=== PATIENT | male | born 1985 | race Caucasian/White ===

== ENCOUNTER 2019-12-16 08:36 | Inpatient (IN) | payer OTHER ==
[~2019-12-16] VITALS: Ht 175.3 cm; Wt 82.7 kg
--- NOTE | 2019-12-16 08:40 | NUR ---
Pt states he is not taking any medications, even the ones he was prescribed.
[2019-12-16] MEDS ORDERED: ONDANSETRON 4 MG/2 ML VIAL ONE (08:51)
[2019-12-16] MEDS ORDERED: MORPHINE SULFATE 4 MG/1 ML DISP.SYRIN ONE (08:51)
[2019-12-16] MEDS ORDERED: MORPHINE SULFATE 2 MG/1 ML DISP.SYRIN ONE (08:52)
[2019-12-16] MEDS ORDERED: FAMOTIDINE. 20 MG/2 ML VIAL IV ONE ×2 (08:52→09:00)
[2019-12-16] MEDS ORDERED: ONDANSETRON 4 MG/2 ML VIAL IV ONE (09:00)
[2019-12-16] MEDS ORDERED: MORPHINE SULFATE 2 MG/1 ML DISP.SYRIN IV ONE (09:00)
[2019-12-16] MEDS ORDERED: IV NORMAL SALINE 1000 ML BAG IV ONE ×2 (09:00→10:15)
[2019-12-16] MEDS ORDERED: MAG HYDROX/AL HYDROX/SIMETH 30 ML LIQUID UDC PO ONE (09:15)
[2019-12-16] MEDS ORDERED: LIDOCAINE VISCUS 2% 15 ML UDC MM ONE (09:15)
[2019-12-16] MEDS ORDERED: LIDOCAINE VISCUS 2% 15 ML UDC ONE (09:20)
[2019-12-16] MEDS ORDERED: MAG HYDROX/AL HYDROX/SIMETH 30 ML LIQUID UDC ONE (09:20)
[2019-12-16 09:33] LABS: BASOPHILS % (AUTO) 0.4 % (0.0-2.0); EOSINOPHILS # (AUTO) 0.1 K/uL (0.0-0.7); EOSINOPHILS % (AUTO) 0.8 % (0.0-7.0); HEMATOCRIT 46.2 % (36.7-47.1); HEMOGLOBIN 16.1 g/dL (12.5-16.3); LYMPHOCYTES # (AUTO) 1.6 K/uL (20.0-40.0); LYMPHOCYTES % (AUTO) 16.1 % (20.5-51.5); MEAN CORPUSCULAR HGB CONC 35 g/dL (32.5-36.3); MEAN CORPUSCULAR VOLUME 88.8 fL (73.0-96.2); MONOCYTES # (AUTO) 0.7 K/uL (2.0-10.0); MONOCYTES % (AUTO) 7.1 % (0.0-11.0); NEUTROPHILS # (AUTO) 7.3 K/uL (1.8-8.9); NEUTROPHILS % (AUTO) 75.6 % (38.5-71.5); PLATELET COUNT (AUTO) 205 K/uL (152-348); WHITE BLOOD COUNT (AUTO) 9.7 K/uL (3.6-10.2)
--- NOTE | 2019-12-16 09:38 | NUR ---
Patient is resting comfortably in bed with eyes closed, pending results & disposition
[2019-12-16 09:41] LABS: CREATININE 0.8 mg/dL (0.6-1.3); POTASSIUM 3.8 mmol/L (3.5-5.1)
[2019-12-16 09:47] LABS: BILIRUBIN,DIRECT 0.3 mg/dL (0.0-0.2); BILIRUBIN,TOTAL 1.5 mg/dL (0.2-1.0); TOTAL PROTEIN, SERUM 7.8 g/dL (6.4-8.2)
[2019-12-16] MEDS ORDERED: LORAZEPAM 2 MG/1 ML VIAL ONE (09:49)
[2019-12-16] MEDS ORDERED: LORAZEPAM 2 MG/1 ML VIAL IV ONE ×2 (10:00→16:45)
[2019-12-16] MEDS ORDERED: ACETAMINOPHEN 325 MG TABLET PO PRN (10:15)
[2019-12-16] MEDS: THIAMINE HCL INJ 100 MG in IV DEXTROSE 5% 50 ML IV SCH ×2 (10:15→10:52)
[2019-12-16] MEDS ORDERED: HYDROMORPHONE 1 MG/1 ML DISP.SYRIN IV ONE (10:15)
[2019-12-16] MEDS ORDERED: LORAZEPAM 2 MG/1 ML VIAL IV PRN ×2 (10:15→22:00)
[2019-12-16] MEDS ORDERED: HYDROMORPHONE 1 MG/1 ML DISP.SYRIN ONE (10:26)
[2019-12-16] MEDS: SUCRALFATE 1 G/10 ML LIQUID UDC PO SCH ×3 (10:54→19:57)
--- NOTE | 2019-12-16 10:58 | NUR ---
Patient is admitted to 3rd floor telemetry room 330 , under the care of JAYY Martinez. Belongings list completed.
[2019-12-16] MEDS ORDERED: SUCRALFATE 1 G/10 ML LIQUID UDC PO ONE (11:30)
[2019-12-16 12:00] VITALS: BP 121/71
--- NOTE | 2019-12-16 12:05 | NUR ---
RECEIVED PATIENT IN BED, PATIENT IS IN AND OUT OF DROWSINESS, AOX4. ABLE TO GET SOC INFORMATION. VS STABLE. PATIENT COMPLAINS OF ABDOMINAL PAIN. RT. AC INTACT AND FLUSHED. SAFETY AND FALL PREVENTION IN PLACE. BED IN LOW POSITION AND LOCKED. CALL LIGHT IN REACH. WILL CONTINUE TO MONITOR.
[2019-12-16] MEDS: IV NS 1000 ML 1,000 ML IV PRN ×2 (13:30→19:54)
[2019-12-16] MEDS: MORPHINE SULFATE 2 MG/1 ML DISP.SYRIN IV PRN ×2 (14:16→19:55)
[2019-12-16 16:50] VITALS: BP 140/79
--- NOTE | 2019-12-16 18:54 | NUR ---
PATIENT AOX4. PATIENT COMPLAINS OF ABDOMINAL PAIN. MEDICATION GIVEN ORDERED. PT. HAS HAND TREMORS MD AWARE. RT. AC INTACT AND FLUSHED. SAFETY AND FALL PREVENTION IN PLACE. BED IN LOW POSITION AND LOCKED. CALL LIGHT IN REACH. WILL REPOST TO ONCOMING NURSE.
[2019-12-16] MEDS: ONDANSETRON 4 MG/2 ML VIAL IV PRN (19:54)
[2019-12-16 20:31] VITALS: BP 124/75
--- NOTE | 2019-12-16 21:30 | NUR ---
JAYY DURAND notified of CIWA Score : 17, pt actively withdrawing from alcohol. Increasingly anxious and agitated. No meds on board for alcohol withdrawal, new one time order noted and carried out.
[2019-12-17 00:01] VITALS: BP 136/80
[2019-12-17] MEDS: IV NS 1000 ML 1,000 ML IV PRN ×3 (03:30→19:41)
[2019-12-17 04:00] VITALS: BP 134/74
[2019-12-17] MEDS: ONDANSETRON 4 MG/2 ML VIAL IV PRN (06:10)
[2019-12-17] MEDS: MORPHINE SULFATE 2 MG/1 ML DISP.SYRIN IV PRN ×4 (06:10→19:34)
[2019-12-17 06:35] LABS: BASOPHILS % (AUTO) 0.4 % (0.0-2.0); EOSINOPHILS # (AUTO) 0.1 K/uL (0.0-0.7); EOSINOPHILS % (AUTO) 0.8 % (0.0-7.0); HEMATOCRIT 41.5 % (36.7-47.1); HEMOGLOBIN 14.4 g/dL (12.5-16.3); LYMPHOCYTES # (AUTO) 1.4 K/uL (20.0-40.0); LYMPHOCYTES % (AUTO) 12.7 % (20.5-51.5); MEAN CORPUSCULAR HEMOGLOBIN 30.8 uug (23.8-33.4); MEAN CORPUSCULAR HGB CONC 35 g/dL (32.5-36.3); MEAN CORPUSCULAR VOLUME 89.1 fL (73.0-96.2); MONOCYTES # (AUTO) 0.8 K/uL (2.0-10.0); MONOCYTES % (AUTO) 7.2 % (0.0-11.0); NEUTROPHILS # (AUTO) 8.5 K/uL (1.8-8.9); NEUTROPHILS % (AUTO) 78.9 % (38.5-71.5); PLATELET COUNT (AUTO) 158 K/uL (152-348); RED BLOOD CELL COUNT(AUTO) 4.66 MIL/uL (4.06-5.63); WHITE BLOOD COUNT (AUTO) 10.8 K/uL (3.6-10.2)
[2019-12-17 06:51] LABS: CREATININE 0.7 mg/dL (0.6-1.3); MAGNESIUM 1.6 mg/dL (1.8-2.4); PHOSPHOROUS 2.5 mg/dL (2.5-4.9); POTASSIUM 3.5 mmol/L (3.5-5.1)
[2019-12-17] MEDS: SUCRALFATE 1 G/10 ML LIQUID UDC PO SCH ×4 (06:52→21:12)
[2019-12-17 07:02] LABS: THYROID STIMULATING HORMONE 1.317 mIU/mL (0.358-3.740)
--- NOTE | 2019-12-17 07:27 | NUR ---
SLEPT WELL THROUGH THE [facility], CIWA SCORING DONE EVRY 4 HOURS. PATIENT DID VERY WELL, NO EXCESSIVE SIGNS OF ALCOHOL WITHDRAWAL NOTED. ABDOMINAL PAIN EFFECTIVELY MANAGED WITH MORPHINE 1MG X 2 GIVEN, AND HOT PACKS. NEEDS ATTENDED. ASSISTED TO BATHROOM FOR SELF GROOMING, TOLERATED WELL. ENDORSED ACCORDINGLY.
--- NOTE | 2019-12-17 07:45 | NUR ---
RECEIVED PATIENT IN BED, AOX4. . PATIENT COMPLAINS OF ABDOMINAL PAIN. PATIENT WAS GIVEN A HOT PACK FOR PAIN PAIN MEDICATION NOT DUE. RT. AC INTACT AND FLUSHED. SAFETY AND FALL PREVENTION IN PLACE. BED IN LOW POSITION AND LOCKED. CALL LIGHT IN REACH. WILL CONTINUE TO MONITOR.
[2019-12-17] MEDS: PANTOPRAZOLE SODIUM 40 MG VIAL IV SCH (08:42)
[2019-12-17] MEDS: FOLIC ACID/VITAMIN B COMP W-C TABLET PO SCH (08:42)
[2019-12-17] MEDS ORDERED: MAGNESIUM OXIDE 400 MG TABLET PO ONE (09:00)
[2019-12-17] MEDS ORDERED: LORAZEPAM 2 MG/1 ML VIAL IV ONE (10:30)
[2019-12-17 11:46] VITALS: BP 140/86
[2019-12-17 13:05] LABS: *BILIRUBIN,URIN NEGATIVE (NEGATIVE); *BLOOD, URINE 1+ (NEGATIVE); *CLARITY,URINE CLEAR (CLEAR); *COLOR,URINE YELLOW (YELLOW); *KETONES,URINE 4+ (NEGATIVE); LEUKOCYTE ESTERASE ,URINE NEGATIVE (NEGATIVE); NITRITE, URINE NEGATIVE (NEGATIVE); UGLUCOSE NEGATIVE (NEGATIVE)
[2019-12-17 13:26] LABS: BACTERIA,URINE FEW /HPF (NONE SEEN); RBC,URINE 0-3 /HPF (0-3); SQUAMOUS EPITHELIAL CELL,UR FEW /HPF (NONE SEEN); WBC,URINE 0-3 /HPF (0-3)
[2019-12-17] MEDS: THIAMINE HCL INJ 100 MG in IV DEXTROSE 5% 50 ML IV SCH (14:53)
[2019-12-17 15:48] VITALS: BP 136/89
--- NOTE | 2019-12-17 17:43 | NUR ---
PATIENT IN BED, AOX4. . PATIENT COMPLAINS OF ABDOMINAL PAIN. PATIENT TREATED WITH HOT PACKS FOR PAIN AND PAIN MEDICATION ORDERED. RT. AC INTACT AND FLUSHED. SAFETY AND FALL PREVENTION IN PLACE. BED IN LOW POSITION AND LOCKED. CALL LIGHT IN REACH. WILL REPORT TO ONCOMING NURSE.
--- NOTE | 2019-12-17 20:18 | NUR ---
Patient received in bed. Alert and oriented x 3-4. Unable remember what hospital he is in or how he got here. Pain in the abdomen., hot pack given and morphine. Patient requesting information on the location of his car. Security informed, and located vehicle in [facility] parking lot. Patient requesting Ativan dose for this evening. MD contacted. Will continue to monitor.
[2019-12-17 20:27] VITALS: BP 141/82
[2019-12-17] MEDS ORDERED: LORAZEPAM 2 MG/1 ML VIAL IV PRN (21:15)
[2019-12-18] VITALS: BP 134/87
[2019-12-18] MEDS: MORPHINE SULFATE 2 MG/1 ML DISP.SYRIN IV PRN ×6 (02:19→22:11)
[2019-12-18] MEDS: IV NS 1000 ML 1,000 ML IV PRN ×3 (02:24→18:16)
[2019-12-18 04:00] VITALS: BP 147/90
--- NOTE | 2019-12-18 06:26 | NUR ---
X2 JELLO GIVEN TO PATIENT THIS AM. NAUSEA AND PAIN FELT IN ABDOMEN. MORPHINE GIVEN. WILL CONTINUE TO MONITOR.
[2019-12-18] MEDS: SUCRALFATE 1 G/10 ML LIQUID UDC PO SCH ×5 (06:30→20:35)
[2019-12-18 06:41] LABS: CREATININE 0.7 mg/dL (0.6-1.3); MAGNESIUM 1.5 mg/dL (1.8-2.4); PHOSPHOROUS 2.2 mg/dL (2.5-4.9); POTASSIUM 3.2 mmol/L (3.5-5.1)
[2019-12-18 06:43] LABS: BASOPHILS % (AUTO) 0.3 % (0.0-2.0); EOSINOPHILS # (AUTO) 0.2 K/uL (0.0-0.7); EOSINOPHILS % (AUTO) 3.3 % (0.0-7.0); HEMATOCRIT 42.9 % (36.7-47.1); HEMOGLOBIN 14.8 g/dL (12.5-16.3); LYMPHOCYTES # (AUTO) 0.7 K/uL (20.0-40.0); LYMPHOCYTES % (AUTO) 9.6 % (20.5-51.5); MEAN CORPUSCULAR HEMOGLOBIN 30.7 uug (23.8-33.4); MEAN CORPUSCULAR HGB CONC 35 g/dL (32.5-36.3); MEAN CORPUSCULAR VOLUME 88.7 fL (73.0-96.2); MONOCYTES # (AUTO) 0.3 K/uL (2.0-10.0); MONOCYTES % (AUTO) 4.4 % (0.0-11.0); NEUTROPHILS % (AUTO) 82.4 % (38.5-71.5); RED BLOOD CELL COUNT(AUTO) 4.83 MIL/uL (4.06-5.63)
[2019-12-18 07:04] LABS: PLATELET COUNT (AUTO) 101 K/uL (152-348); WHITE BLOOD COUNT (AUTO) 7.2 K/uL (3.6-10.2)
[2019-12-18 07:55] VITALS: BP 142/94
[2019-12-18] MEDS: PANTOPRAZOLE SODIUM 40 MG VIAL IV SCH (08:29)
[2019-12-18] MEDS: ONDANSETRON 4 MG/2 ML VIAL IV PRN (08:29)
[2019-12-18] MEDS: FOLIC ACID/VITAMIN B COMP W-C TABLET PO SCH (08:30)
[2019-12-18] MEDS ORDERED: LORAZEPAM 2 MG/1 ML VIAL IV PRN (10:45)
[2019-12-18] MEDS: MAGNESIUM SULFATE/D5W 100 ML IV SCH ×3 (11:16→13:05)
--- NOTE | 2019-12-18 11:35 | NUR ---
Patient medicated for pain ATC though out the shift, and according to him never happy at around noon patient threatening to leave AMA. Patient educated on possible danger to leave AMA, attending notified. patient medicated with ativan as ordered. Patient decided to stay. At 1800 patient requesting ativan Q4H or Q2H and dilaudid 2mg Q2H.would be better". Attending called and orders received.
[2019-12-18 11:41] VITALS: BP 147/95
[2019-12-18] MEDS: THIAMINE HCL INJ 100 MG in IV DEXTROSE 5% 50 ML IV SCH (14:08)
[2019-12-18] MEDS: POTASSIUM CHLORIDE 50 ML IV SCH ×3 (14:15→16:18)
[2019-12-18 15:26] VITALS: BP 151/98
[2019-12-18] MEDS ORDERED: SODIUM PHOSPHATE MM 15 MM in IV DEXTROSE 5% 250 ML IV ONE (17:00)
--- NOTE | 2019-12-18 18:00 | NUR ---
At 1800 patient requesting ativan Q4H or Q2H and dilaudid 2mg Q2H.would be better". Attending called and orders received.
--- NOTE | 2019-12-18 18:15 | NUR ---
morphine 1 mg administered to patient; in [facility] which dispensed 1mg vial. patient received 1mg. and since med was dispense in 1mg vial no wasted done, even though waste was documented by users error.
[2019-12-18] MEDS ORDERED: LORAZEPAM 2 MG/1 ML VIAL IV ONE (19:00)
--- NOTE | 2019-12-18 20:00 | NUR ---
RECEIVED PATIENT AWAKE IN BED. A/O X4. C/O IN ABDOMEN, PATIENT AWARE THAT PAIN MEDICATION IS NOT DUE UNTIL 2200. VERBALIZED UNDERSTANDING. IVF INFUSING WELL TO RIGHT UPPER ARM, #18 GAUGE. CALL LIGHT IN REACH. ALL NEEDS ATTENDED. WILL CONTINUE TO MONITOR AND ASSESS.
[2019-12-18 21:35] VITALS: BP 151/100
[2019-12-19] MEDS: IV NS 1000 ML 1,000 ML IV PRN ×2 (00:18→06:09)
[2019-12-19] MEDS: MORPHINE SULFATE 2 MG/1 ML DISP.SYRIN IV PRN (02:15)
[2019-12-19 05:53] VITALS: BP 136/95
[2019-12-19 06:19] LABS: BASOPHILS % (AUTO) 0.2 % (0.0-2.0); EOSINOPHILS # (AUTO) 0.3 K/uL (0.0-0.7); EOSINOPHILS % (AUTO) 4.6 % (0.0-7.0); HEMATOCRIT 44.3 % (36.7-47.1); HEMOGLOBIN 15.4 g/dL (12.5-16.3); LYMPHOCYTES % (AUTO) 14.6 % (20.5-51.5); MEAN CORPUSCULAR HEMOGLOBIN 30.9 uug (23.8-33.4); MEAN CORPUSCULAR HGB CONC 35 g/dL (32.5-36.3); MEAN CORPUSCULAR VOLUME 88.9 fL (73.0-96.2); MONOCYTES # (AUTO) 0.4 K/uL (2.0-10.0); NEUTROPHILS # (AUTO) 4.9 K/uL (1.8-8.9); NEUTROPHILS % (AUTO) 74.6 % (38.5-71.5); PLATELET COUNT (AUTO) 95 K/uL (152-348); RED BLOOD CELL COUNT(AUTO) 4.99 MIL/uL (4.06-5.63); WHITE BLOOD COUNT (AUTO) 6.6 K/uL (3.6-10.2)
[2019-12-19 06:23] LABS: CREATININE 0.8 mg/dL (0.6-1.3); MAGNESIUM 1.9 mg/dL (1.8-2.4); PHOSPHOROUS 3.6 mg/dL (2.5-4.9); POTASSIUM 3.4 mmol/L (3.5-5.1)
--- NOTE | 2019-12-19 06:32 | NUR ---
PATIENT AWAKE IN BED. SLEPT AT INTERVALS. NO C/O PAIN OR DISCOMFORT. NO RESP. DISTRESS NOTED. IVF INFUSING WELL TO RIGHT FA. CALL LIGHT IN REACH. VS WNL. ALL NEEDS ATTENDED. WILL CONTINUE TO MONITOR AND ASSESS.
[2019-12-19] MEDS: SUCRALFATE 1 G/10 ML LIQUID UDC PO SCH ×2 (07:45→11:34)
--- NOTE | 2019-12-19 08:00 | NUR ---
RECEIVED PT RESTING IN BED COMFORTABLY. NO ACUTE DISTRESS OR SOB NOTED. PT ALERT AND ORIENTED X3. CALL LIGHT WITHIN REACH. PAIN TO BE MANAGED WITH MEDICATION. IV FLUSHES WELL, NO REDNESS OR SIGNS OF LEAKAGE OR INFILTRATION. CALL LIGHT WITHIN REACH. BED LOCKED AND IN LOW POSITION. WILL CONTINUE TO MONITOR FOR SAFETY AND COMFORT.
[2019-12-19] MEDS: FOLIC ACID/VITAMIN B COMP W-C TABLET PO SCH (08:39)
[2019-12-19] MEDS: PANTOPRAZOLE SODIUM 40 MG VIAL IV SCH (08:43)
[2019-12-19] MEDS ORDERED: THIAMINE HCL 100 MG TABLET PO SCH (09:15)
[2019-12-19 11:31] VITALS: BP 135/96
[2019-12-19] MEDS ORDERED: POTASSIUM CHLORIDE 20 MEQ TAB.PRT.SR PO ONE (12:00)
--- NOTE | 2019-12-19 14:25 | NUR ---
PT HAS BEEN DISCHARGED HOME/SELF CARE. NO ACUTE DISTRESS NOTED. NO SOB NOTED. BALANCED GAIT. DISCHARGE INSTRUCTIONS GIVEN TO PATIENT WITH GOOD UNDERSTANDING. NO NEW RX. BELONGINGS LIST SIGNED AND BELONGINGS RETURNED. IV REMOVED INTACT. PT ESCORTED TO PRIVATE TRANSPORT BY STAFF.
[2019-12-20] MEDS ORDERED: PANTOPRAZOLE SODIUM 40 MG TABLET.DR PO SCH (07:00)
== END 2019-12-19 14:25 | disposition home or self-care (01) | DRG 775 ==
LOC: ER 08:36 → TELE3 10:49 → MEDSURG3 12-18 14:19
PROVIDERS: ADMIT Registered Nurse; ATTEND Registered Nurse
DX: F10.229 Alcohol dependence with intoxication, unspecified (principal); K85.20 Alcohol induced acute pancreatitis without necrosis or infection; K76.0 Fatty (change of) liver, not elsewhere classified; E83.39 Other disorders of phosphorus metabolism; K86.0 Alcohol-induced chronic pancreatitis; F10.232 Alcohol dependence with withdrawal with perceptual disturbance; E87.1 Hypo-osmolality and hyponatremia; K29.20 Alcoholic gastritis without bleeding; Y90.8 Blood alcohol level of 240 mg/100 ml or more; Z91.14 Patient's other noncompliance with medication regimen; I10 Essential (primary) hypertension; E87.6 Hypokalemia; E51.9 Thiamine deficiency, unspecified
CPT/HCPCS: 36415; 83690; 83735; 84100; 84443; 85025; A4663; C9113; G0378; G0480; J1170; J2060; J2270; J2405; J3411; J3475; J3480; J3490; J7030; J7060